=== PATIENT | female | born 1980 ===

== ENCOUNTER 2016-06-24 15:30 | Emergency (ER) | payer OTHER ==
[2016-06-24 15:36] VITALS: RESP 18; TEMP 98.1; O2SAT 98
[2016-06-24] MEDS ORDERED: Naproxen 550 mg Tab PO STA (15:54)
[2016-06-24] MEDS ORDERED: Naproxen 550 mg Tab PO ONE (16:00)
--- NOTE | 2016-06-24 16:24 | C.PDOC ---
History Of Present Illness 35 year old patient presents to the ED complaining of atraumatic right knee pain for the past 3 days. Patient states the pain worsens with ambulation. She denies fever, falls/injuries, redness, swelling, calf pain, sensory changes. Time Seen by Provider: 06/24/16 15:37 Chief Complaint (Nursing): Lower Extremity Problem/Injury History Per: Patient History/Exam Limitations: no limitations Onset/Duration Of Symptoms: Days (3) Current Symptoms Are (Timing): Still Present Severity: Mild Past Medical History Reviewed: Historical Data, Nursing Documentation, Vital Signs Vital Signs: Last Vital Signs Temp 98.1 F 06/24/16 15:36 Pulse 71 06/24/16 16:50 Resp 18 06/24/16 16:50 BP 124/72 06/24/16 16:50 Pulse Ox 98 06/24/16 18:35 - Medical History PMH: Anemia Family History: States: No Known Family Hx - Social History Hx Alcohol Use: No Hx Substance Use: No - Immunization History Hx Tetanus Toxoid Vaccination: No Hx Influenza Vaccination: No Hx Pneumococcal Vaccination: No Review Of Systems Except As Marked, All Systems Reviewed And Found Negative. Constitutional: Negative for: Fever Cardiovascular: Negative for: Chest Pain, Palpitations Respiratory: Negative for: Cough, Shortness of Breath Gastrointestinal: Negative for: Nausea, Vomiting, Abdominal Pain, Diarrhea Musculoskeletal: Positive for: Other (right knee pain). Negative for: Leg Pain (calf pain) Skin: Negative for: Other (swelling, redness) Neurological: Negative for: Weakness, Numbness Physical Exam - Physical Exam Appears: Non-toxic, No Acute Distress, Other (comfortable) Skin: Warm, Dry Oral Mucosa: Moist Cardiovascular: Rhythm Regular Respiratory: Normal Breath Sounds, No Rales, No Rhonchi, No Wheezing Gastrointestinal/Abdominal: Normal Exam, Bowel Sounds, Soft, No Tenderness Back: Normal Inspection, No CVA Tenderness Extremity: Normal ROM, No Tenderness, No Pedal Edema, No Calf Tenderness, Capillary Refill (<2 seconds all digits ), No Deformity, No Swelling, Other ( right knee: positive posterior drawer test, negative anterior drawer test; mild diffuse tenderness to palpation of right knee; (-)swelling (-)erythema (-) warmth to touch (-)deformity) Extremity: Bilateral: Normal ROM Pulses: Left Dorsalis Pedis: Normal, Right Dorsalis Pedis: Normal Neurological/Psych: Oriented x3, Normal Motor, Normal Sensation Gait: Steady ED Course And Treatment O2 Sat by Pulse Oximetry: 98 (room air) Pulse Ox Interpretation: Normal - Other Rad right knee X-Ray: Interpreted by Me, Viewed By Me Interpretation: no fractures or dislocations Progress Note: Patient given PO Naproxen, and Xray of right knee ordered and reviewed. Xray (-) for fractures/dislocations. Louis wrap applied to area by services tech. Patient given rx for pain medication, and was instructed to follow up with orthopedics within 1 week. She understands she should return to ED if symptoms worsen. Reevaluation Time: 16:45 Reassessment Condition: Improved Disposition Counseled Patient/Family Regarding: Studies Performed, Diagnosis, Need For Followup, Rx Given - Disposition Referrals: Marie Gray MD [Staff Provider] - [facility] at [facility] [Outside] Disposition: HOME/ ROUTINE Disposition Time: 16:45 Condition: STABLE Additional Instructions: SEGUIMIENTO CON ORTOPEDIA DENTRO DE 1 SEMANA PARA EVALUACIN ADICIONAL USE MEDICAMENTOS PARA EL DOLOR RAYMOND SEA NECESARIO APLICAR HIELO POR 15 MIN VARIAS VECES DIARIAMENTE DEVUELVA A LA OTONIEL DE EMERGENCIA SI LOS SNTOMAS SE EMPEORARAN Prescriptions: Naproxen [Naprosyn Tab] 375 mg PO BID PRN #15 tab PRN Reason: pain Instructions: Knee Sprain (ED) Print Language: CITIZEN OF [place] - POA Present On Arrival: None - Clinical Impression Clinical Impression: Knee pain, right, Soft tissue injury - Scribe Statement The provider has reviewed the documentation as recorded by the Scribriki Parekh Provider Attestation: All medical record entries made by the Scribe were at my direction and personally dictated by me. I have reviewed the chart and agree that the record accurately reflects my personal performance of the history, physical exam, medical decision making, and the department course for this patient. I have also personally directed, reviewed, and agree with the discharge instructions and disposition.
[2016-06-24 16:51] VITALS: BP 124/72; PULSE 71
--- NOTE | 2016-06-24 23:11 | RAD ---
PROCEDURE: Right Knee Radiographs. HISTORY: COMPARISON: No prior. FINDINGS: BONES: No acute displaced fracture. JOINTS: No dislocation. JOINT EFFUSION: Moderate suprapatellar joint effusion. OTHER FINDINGS: None. IMPRESSION: Moderate suprapatellar joint effusion. Study has been marked for PA review.
== END 2016-06-24 16:52 | disposition home or self-care (01) ==
LOC: C.ER 15:30
DX: S89.81XA Other specified injuries of right lower leg, initial encounter (principal); X58.XXXA Exposure to other specified factors, initial encounter; M25.561 Pain in right knee

== ENCOUNTER 2016-06-30 14:00 | Emergency (ER) | payer OTHER ==
[2016-06-30 14:07] VITALS: BP 96/62; PULSE 77; TEMP 97.3; O2SAT 98
--- NOTE | 2016-06-30 15:31 | C.PDOC ---
History Of Present Illness 35 yr old female presents to the ER requesting a work note. Patient reports she was seen 6 days ago for right knee pain and negative knee xray. Patient reports she was discharged with knee brace and nsaids. Reports the pain is decreased with the knee brace and NSAID use. Patient is requesting a work note stating what kind of work she is able to do. Patient denies back pain, leg pain, foot pain, weakness or numbness. Time Seen by Provider: 06/30/16 14:53 Chief Complaint (Nursing): Lower Extremity Problem/Injury History Per: Patient History/Exam Limitations: no limitations Onset/Duration Of Symptoms: Days (6) Current Symptoms Are (Timing): Better Past Medical History Reviewed: Historical Data, Nursing Documentation, Vital Signs Vital Signs: Last Vital Signs Temp 97.3 F L 06/30/16 14:05 Pulse 77 06/30/16 14:05 Resp 20 06/30/16 16:13 BP 96/62 L 06/30/16 14:05 Pulse Ox 98 06/30/16 23:35 - Medical History PMH: Anemia Family History: States: No Known Family Hx - Social History Hx Alcohol Use: No Hx Substance Use: No - Immunization History Hx Tetanus Toxoid Vaccination: No Hx Influenza Vaccination: No Hx Pneumococcal Vaccination: No Review Of Systems Except As Marked, All Systems Reviewed And Found Negative. Musculoskeletal: Positive for: Other (Right knee pain, with a knee brace on. ). Negative for: Back Pain, Leg Pain, Foot Pain Physical Exam - Physical Exam Appears: Well, Non-toxic, No Acute Distress Skin: Warm, Dry Head: Atraumatic, Normacephalic Oral Mucosa: Moist Extremity: Normal ROM, No Tenderness, No Pedal Edema, No Calf Tenderness, No Deformity, No Swelling, Other (from of right knee, no swelling noted, non tender on exam. ) Pulses: Left Dorsalis Pedis: Normal, Right Dorsalis Pedis: Normal Neurological/Psych: Oriented x3, Normal Speech, Normal Motor, Normal Sensation, Normal Reflexes ED Course And Treatment O2 Sat by Pulse Oximetry: 98 Disposition Counseled Patient/Family Regarding: Need For Followup - Disposition Disposition: HOME/ ROUTINE Disposition Time: 15:30 Condition: GOOD Additional Instructions: Follow up with Orthopedist next week as scheduled. Continue to take Naproxen. Light duty at work. Continue to use knee brace for support and comfort. Instructions: Knee Pain (ED), Knee Exercises (GEN) Forms: Gen Discharge Inst Yoruba, Work Excuse Print Language: [place]ET[place]ESE - Clinical Impression Clinical Impression: Knee pain, right - PA / MANAGER CAN[employer]ER / Resident Statement MD/DO has reviewed & agrees with the documentation as recorded. - Scribe Statement The provider has reviewed the documentation as recorded by the Scribe Malean Swan All medical record entries made by the Scribe were at my direction and personally dictated by me. I have reviewed the chart and agree that the record accurately reflects my personal performance of the history, physical exam, medical decision making, and the department course for this patient. I have also personally directed, reviewed, and agree with the discharge instructions and disposition.
[2016-06-30 16:14] VITALS: RESP 20
== END 2016-06-30 16:13 | disposition home or self-care (01) ==
LOC: C.ER 14:00
DX: M25.561 Pain in right knee (principal)

== ENCOUNTER 2016-10-25 16:31 | Emergency (ER) | payer OTHER ==
[2016-10-25 16:32] VITALS: BMI 21.9
[2016-10-25 16:40] VITALS: BP 108/62
[2016-10-25 17:47] LABS: RBC URINE < 1 /hpf (0-3); TRANSITIONAL EPITHIAL < 1 /hpf (0-3); URINE BACTERIA RARE (<OCC); URINE BILIRUBIN NEGATIVE (NEGATIVE); URINE BLOOD NEGATIVE (NEGATIVE); URINE COLOR Straw (YELLOW); URINE GLUCOSE (UA) 3+ mg/dL (Normal); URINE KETONE NEGATIVE (NEGATIVE); URINE LEUKOCYTE ESTERASE NEG Leu/uL (Negative); URINE PROTEIN NEGATIVE (NEGATIVE); URINE UROBILINOGEN NORMAL mg/dL (0.2-1.0); WBC URINE 1 /hpf (0-5)
--- NOTE | 2016-10-25 17:53 | C.PDOC ---
History Of Present Illness 36 year old female presents to the ED with complaints of sore throat, fever, urinary frequency, and generalized body aches since this morning. Patient also notes constipation, she states she normally has a bowel movement every three days. She denies dysuria, hematuria, nausea, vomiting, or diarrhea. Time Seen by Provider: 10/25/16 16:45 Chief Complaint (Nursing): ENT Problem History Per: Patient History/Exam Limitations: no limitations Onset/Duration Of Symptoms: Hrs Current Symptoms Are (Timing): Still Present Recent travel outside of the [place]: No Past Medical History Reviewed: Historical Data, Nursing Documentation, Vital Signs Vital Signs: Last Vital Signs Temp 98.1 F 10/25/16 18:14 Pulse 75 10/25/16 18:14 Resp 18 10/25/16 18:14 BP 108/62 10/25/16 16:35 Pulse Ox 99 10/25/16 20:02 - Medical History PMH: Anemia Family History: States: Unknown Family Hx - Social History Hx Alcohol Use: No Hx Substance Use: No - Immunization History Hx Tetanus Toxoid Vaccination: No Hx Influenza Vaccination: No Hx Pneumococcal Vaccination: No Review Of Systems Constitutional: Positive for: Fever, Other (generalized body aches). Negative for: Chills ENT: Positive for: Other (sore throat) Cardiovascular: Negative for: Chest Pain Respiratory: Negative for: Cough, Shortness of Breath Gastrointestinal: Positive for: Constipation (regularly constipated, bowel movement every 3 days). Negative for: Nausea, Vomiting, Abdominal Pain, Diarrhea Genitourinary: Positive for: Frequency. Negative for: Dysuria, Hematuria Physical Exam - Physical Exam Appears: Non-toxic, No Acute Distress Skin: Warm, Dry Head: Atraumatic, Normacephalic Eye(s): bilateral: Normal Inspection, PERRL, EOMI Ear(s): Bilateral: Normal Nose: Normal, No Discharge Oral Mucosa: Moist Throat: Erythema (mild pharyngeal erythema) Neck: Normal ROM, Supple Chest: Symmetrical, No Deformity Cardiovascular: Rhythm Regular, No Murmur Respiratory: Normal Breath Sounds, No Rales, No Rhonchi, No Wheezing Gastrointestinal/Abdominal: Soft, No Tenderness, No Distention, No Guarding, No Rebound Back: Normal Inspection, No CVA Tenderness, No Vertebral Tenderness, No Paraspinal Tenderness Extremity: Bilateral: Atraumatic, Normal ROM Neurological/Psych: Oriented x3, Normal Speech Gait: Steady ED Course And Treatment O2 Sat by Pulse Oximetry: 99 (room air ) Progress Note: Patient was given Tylenol and notes improvement of symptoms. Reassessment Condition: Improved Medical Decision Making Medical Decision Makin36 year old female with fever sore throat and generalized bodyaches Tylenol PO given. UA ordered and reviewed On re-examination, fever reduced and patient resting comfortably in no acute distress. Symptoms likely viral. Patient feels comfortable going home and will be discharged. Patient given follow up instructions. Instructed to return to ER if symptoms worsen or new symptoms arise. Disposition Counseled Patient/Family Regarding: Diagnosis, Need For Followup, Rx Given - Disposition Referrals: [facility] at [facility] [Outside] Disposition: HOME/ ROUTINE Disposition Time: 17:52 Condition: STABLE Additional Instructions: Vaya a wylie mdico o la clnica en 2-5 mondragon sin falta, para mas evaluacin. [place] los medicamentos bernice indicado. Volver a la niya de emergencia en cualquier momento si los sntomas persisten o empeoran. Prescriptions: Ibuprofen [Motrin] 600 mg PO Q8 #30 tab Instructions: Pharyngitis (ED) Print Language: T[place] - POA Present On Arrival: None - Clinical Impression Clinical Impression: Pharyngitis, Fever - Scribe Statement The provider has reviewed the documentation as recorded by the Scribriki Dc All medical record entries made by the Scribe were at my direction and personally dictated by me. I have reviewed the chart and agree that the record accurately reflects my personal performance of the history, physical exam, medical decision making, and the department course for this patient. I have also personally directed, reviewed, and agree with the discharge instructions and disposition.
[2016-10-25 18:15] VITALS: PULSE 75; RESP 18; TEMP 98.1
[2016-10-25 19:18] VITALS: O2SAT 99
== END 2016-10-25 18:15 | disposition home or self-care (01) ==
LOC: C.ER 16:31
DX: J02.9 Acute pharyngitis, unspecified (principal); R50.81 Fever presenting with conditions classified elsewhere

== ENCOUNTER 2017-11-23 19:22 | Emergency (ER) | payer SELFPAY ==
[2017-11-23 19:22] VITALS: BMI 24.1
[2017-11-23 19:31] VITALS: BP 113/70; RESP 20
--- NOTE | 2017-11-23 19:49 | C.PDOC ---
History Of Present Illness 37 y/o healthy female c/o fever, sore throat, ear fullness, dry cough and body aches x 2 days. no sick contacts. no recent travel. not taking anything at home. Time Seen by Provider: 11/23/17 19:32 Chief Complaint (Nursing): Fever History Per: Patient History/Exam Limitations: no limitations Onset/Duration Of Symptoms: Days (3) Current Symptoms Are (Timing): Still Present Location Of Pain: Ear(s), Throat, Diffuse Myalgias Sick Contacts (Context): None Associated Symptoms: Fever, Chills, Sore Throat, Cough, Myalgias, Nasal Congestion. denies: Sputum, Vomiting, Diarrhea Ear Symptoms: Bilateral: Ear Fullness Severity: Moderate Recent travel outside of the [place]: No Past Medical History Reviewed: Historical Data, Nursing Documentation, Vital Signs Vital Signs: Last Vital Signs Temp 101.4 F H 11/23/17 19:31 Pulse 115 H 11/23/17 19:31 Resp 20 11/23/17 19:31 BP 113/70 11/23/17 19:31 Pulse Ox 97 11/23/17 19:31 - Medical History PMH: Anemia Family History: States: Unknown Family Hx - Social History Hx Tobacco Use: No Hx Alcohol Use: No Hx Substance Use: No - Immunization History Hx Tetanus Toxoid Vaccination: No Hx Influenza Vaccination: No Hx Pneumococcal Vaccination: No Review Of Systems Constitutional: Positive for: Fever, Chills ENT: Positive for: Ear Pain, Nose Discharge, Nose Congestion, Throat Pain Cardiovascular: Negative for: Chest Pain Respiratory: Positive for: Cough. Negative for: Shortness of Breath, Sputum, Wheezing Gastrointestinal: Negative for: Vomiting, Abdominal Pain, Diarrhea Skin: Negative for: Rash Neurological: Negative for: Weakness, Numbness Physical Exam - Physical Exam Appears: Non-toxic, Other (uncomfortable wiht frequent dry cough) Skin: Warm, Dry Head: Atraumatic, Normacephalic Eye(s): bilateral: Other (conjunctiva erythematous, no discharge) Ear(s): Bilateral: Normal Oral Mucosa: Moist Tongue: Normal Appearing Lips: Normal Appearing Throat: Erythema, No Exudate Neck: Supple Lymphatic: Adenopathy (mild tender submandibular adenopathy) Cardiovascular: Other (tachycrdic) Respiratory: No Decreased Breath Sounds, No Rales, No Rhonchi, No Wheezing Gastrointestinal/Abdominal: Bowel Sounds, Soft, No Tenderness Extremity: Normal ROM, No Tenderness, No Swelling Neurological/Psych: Oriented x3, Normal Speech, Normal Cognition ED Course And Treatment O2 Sat by Pulse Oximetry: 97 (RA) Pulse Ox Interpretation: Normal Medical Decision Making Medical Decision Makin37 y/o female with flu like symptoms x 3 days- rapid strep, tylenol, inf swab, saline neb tx., re-eval Disposition Counseled Patient/Family Regarding: Studies Performed, Diagnosis, Need For Followup, Rx Given - Disposition Referrals: [facility] at [facility] [Outside] Disposition: HOME/ ROUTINE Disposition Time: 20:39 Condition: IMPROVED Additional Instructions: [place] Tylenol cada 4-6 horas para la fiebre o el dolor. Sarahy lquidos en exceso, t, agua, mantngase amber hidratado. Evite los productos lcteos por unos mondragon. Mayor descanso. Seguimiento en clnica mdica en pocos mondragon. [place] Tessalon Perles para la tos. Please take Tylenol every 4-6 hours for fever or pain. Drink increased fluids- tea, water, Stay well hydrated. Avoid dairy products for a few days. Increased rest. Follow up in medical clinic in a few days. Take Tessalon Perles for cough. Prescriptions: Acetaminophen [Tylenol 325mg tab] 650 mg PO Q4 #50 tab Benzonatate [Tessalon Perles] 100 mg PO TID #9 sgl Instructions: Flu, Adult (DC) Forms: Gen Discharge Inst Prydeinig, [employer] (Prydeinig), Work Excuse Print Language: CONGOLESE - Clinical Impression Clinical Impression: Influenza-like illness
[2017-11-23] MEDS ORDERED: Sodium Chloride 0.9% Inh Soln (3mL) UD INH ONE (19:56)
[2017-11-23 20:24] VITALS: PULSE 108; TEMP 100.2
[2017-11-23 20:29] VITALS: O2SAT 97
[2017-11-23 20:32] LABS: INFLUENZA A B NEGATIVE FOR FLU A/B (NEGATIVE)
== END 2017-11-23 21:09 | disposition home or self-care (01) ==
LOC: C.ER 19:22
DX: J11.1 Influenza due to unidentified influenza virus with other respiratory manifestations (principal)